=== PATIENT | female | born 1950 | race Caucasian/White ===

== ENCOUNTER → 2021-01-10 10:00 | Outpatient (CLI) | payer MEDICARE, OTHER, SELFPAY ==
[2020-12-29 14:03] VITALS: BMI 41.5
--- NOTE | 2021-01-10 10:28 | RAD_ITS ---
STUDY: X-RAY CHEST REASON FOR EXAM: Female, 70 years old. Atrial fibrillation TECHNIQUE: PA and lateral views of the chest. COMPARISON: Comparison is made with prior study dated 12/09/2016. FINDINGS: Mild increased linear markings at the left lung base suggestive of a mild basilar scarring. There is no demonstrated pleural abnormality. Normal size heart. Normal mediastinum and anjel. Normal visualized pulmonary arteries. There is atherosclerotic calcification of the aortic arch with tortuosity. There are diffuse degenerative changes of the visualized thoracic spine. There is degenerative osteoarthritis of the bilateral shoulders. Surgical clips are seen in the epigastric region. RAD/Chest PA and Lateral IMPRESSION: Mild degree of increased signal markings at the left lung base suggestive of linear scarring. Electronically Signed: Brice Rizo MD at 10:38 EDT , Service support ,
[2021-01-10 11:36] LABS: Absolute Lymphocyte Count 1.78 X10^3/uL (0.83-4.51); Absolute Neutrophil Count 3.2 X10^3/uL (2.0-7.7); Basophil# 0.03 X10^3/uL; Basophil% 0.6 % (0-1); Eosinophil# 0.06 X10^3/uL; Eosinophils% 1.1 % (0-5); Hematocrit 50.6 % (37-47); Lymphocyte # 1.78 X10^3/ul (4.0); Lymphocyte % 33.1 % (19-41); Mean Corp Hgb Conc 31.6 g/dL (32-36); Mean Corpuscular Hgb 29.1 pg (27.0-32.0); Mean Corpuscular Volume 92.2 fL (81-99); Mean Platelet Vol. 12.2 fl (6.2-12.0); Monocyte# 0.34 X10^3/uL; Monocyte% 6.3 % (0-10); NRBC Flagged by Analyzer 0 % (0-5); Neutrophil # 3.16 X10^3/uL (2.7-7.7); Neutrophil % 58.7 % (47-70); Platelet Count 224 K/mm3 (150-450); RBC Distribution Width CV 14.2 % (11.6-14.6); RBC Distribution Width SD 47.9 fl (35.1-43.9); Red Blood Count 5.49 M/mm3 (4.2-5.4); White Blood Count 5.4 K/mm3 (4.4-11.0)
[2021-01-10 12:14] LABS: ALB/GLOB Ratio 1.1 RATIO (0.9-2.4); AST(SGOT) 13 U/L (15-37); Alanine Aminotransfer ALT/SGPT 24 U/L (13-56); Albumin, Serum 3.9 g/dL (3.2-5.0); Alkaline Phosphatase 83 U/L (45-117); Anion Gap 5 (5-15); BUN 10 mg/dL (7-18); BUN/Creat Ratio 18.2 RATIO (10-20); Calcium,Total 9.3 mg/dL (8.5-10.1); Chloride 105 mmol/L (98-107); Cholesterol 118 mg/dL (200); Creatinine, Serum 0.55 mg/dL (0.55-1.02); EST Glomerular Filtration Rate 116 mL/min (>60); Est Glom Filt Rate - Afr Amer 140 mL/min (>60); Globulin 3.6 g/dL (2.2-4.2); Glucose 140 mg/dL (74-106); High Density Lipoprotein 29 mg/dL; Magnesium 2.1 mg/dL (1.6-2.6); Potassium 4.6 mmol/L (3.5-5.1); Protein, Total 7.5 g/dL (6.4-8.2); Sodium Level 140 mmol/L (136-145); T4 Total, Thyroxin 11.4 ug/dL (4.8-13.9); Triglycerides 116 mg/dL; Very Low Density Lipoprotein 23 mg/dL (5-40)
[2021-01-10 13:43] LABS: Theophylline (Aminophylline) < 2.0 ug/mL (10.0-20.0)
== END ==
PROVIDERS: Referring Provider Internal Medicine Cardiovascular Disease; Visit Provider Internal Medicine Cardiovascular Disease
DX: I48.91 Unspecified atrial fibrillation (principal); E03.9 Hypothyroidism, unspecified; I10 Essential (primary) hypertension; E78.00 Pure hypercholesterolemia, unspecified
CPT/HCPCS: 36415; 71046; 80053; 80061; 80198; 83735; 84436; 85025

== ENCOUNTER → 2021-01-17 07:09 | Outpatient (CLI) | payer MEDICARE, OTHER, SELFPAY ==
[2020-12-29 14:03] VITALS: BMI 41.5
--- NOTE | 2021-01-17 07:10 | ECHOCS_ITS ---
Reason For Study: Afib/Flutter Procedure This was a 2D Doppler, Color Flow transthoracic echocardiogram. The study was technically difficult. Contrast injection was performed. Exam performed in department. Left Ventricle Normal LV size. Moderate concentric left ventricular hypertrophy. Left ventricular systolic function is normal. The estimated ejection fraction is 60 %. Unable to assess diastolic dysfunction. No regional wall motion abnormalities noted. Right Ventricle Normal RV size. Normal systolic function. Atria The left atrium is moderately enlarged. The right atrium is moderately enlarged. No doppler evidence for ASD. Mitral Valve There is mild mitral annular calcification. Extension of the mitral annular calcification onto the base of the posterior mitral valve leaflet. Trivial mitral valve insufficiency. Tricuspid Valve Normal tricuspid valve. Trivial tricuspid valve insufficiency. Unable to estimate RV systolic pressure/pulmonary artery pressure due to technically difficult study. Aortic Valve The aortic valve is not well visualized. Pulmonic Valve The pulmonic valve is not well visualized. Trivial pulmonic valve insufficiency. Great Vessels The aortic root is not well visualized. Pericardium/Pleural Trivial pericardial effusion. There are no echocardiographic indications of cardiac tamponade. Medication 22 gauge I.V. with prn adaptor inserted into right arm. Diluted definity 2ml given slow IV push to enhance endocardial definition. MMode/2D Measurements & Calculations LVIDd: 4.4 cm IVSd: 1.5 cm LA dimension: 4.4 cm LVIDs: 3.1 cm LVPWd: 1.3 cm FS: 29.6 % LAV(MOD-bp): 83.6 ml LA A4 area: 25.1 cm2 RA A4 area: 25.0 cm2 LAV(MOD-bp) Indexed: 40.4 ml/m2 LAV(MOD-sp2): 74.4 ml LAV(MOD-sp4): 84.8 ml Doppler Measurements & Calculations MV E max geo: 109.4 cm/sec Ao V2 max: 99.5 cm/sec LV V1 max: 75.7 cm/sec Ao max P.0 mmHg LV V1 max P.3 mmHg PA V2 max: 60.7 cm/sec ECHO/Echo Complete W/ Contrast Interpretation Summary The study was technically difficult. Contrast injection was performed. Left ventricular systolic function is normal. The estimated ejection fraction is 60 %. Moderate concentric left ventricular hypertrophy. The left atrium is moderately enlarged. The right atrium is moderately enlarged. There is mild mitral annular calcification. Extension of the mitral annular calcification onto the base of the posterior mi tral valve leaflet. Trivial mitral valve insufficiency. Trivial tricuspid valve insufficiency. Trivial pulmonic valve insufficiency. Trivial pericardial effusion. There are no echocardiographic indications of cardiac tamponade. Unable to estimate RV systolic pressure/pulmonary artery pressure due to techni mauro difficult study. Unable to assess diastolic dysfunction. Ordering Physician: Alex Nayak Referring Physician: More Cochran Performed By: Waylon Payton RCS
--- NOTE | 2021-01-17 09:18 | STRESSREP ---
Stress Test Report Date: 01-17-2021 Procedure: Pharmacologic stress nuclear imaging study Indications: Atrial fibrillation Consent: Per the patient Procedure: The patient underwent pharmacologic (Regadenoson 0.4mg ) evaluation with a peak heart rate of 120 beats per minute (80%predicted maximal heart rate) and a peak blood pressure of 162/92 mmHg. The baseline ECG demonstrated atrial fibrillation; nonspecific ST/T wave abnormality. The peak pharmacologic ECG demonstrated no obvious ECG changes. There were no cardiac dysrhythmias pretest, during pharmacologic infusion, or recovery. There was no complaint of chest discomfort during pharmacologic infusion or recovery. The examination was discontinued secondary to completion of protocol. Impression: 1. Pharmacologic (Regadenoson) evaluation 2. Peak pharmacologic ECG with continued atrial fibrillation with nonspecific ST/T wave abnormality. 3. There were no cardiac dysrhythmias pretest, during pharmacologic infusion, or recovery. 4. Nuclear images pending Myocardial perfusion imaging study: Technique: The patient was injected with 14.7 millicuries of technetium 99m Cardiolite and subsequently rest SPECT Cardiolite nuclear imaging was obtained in the horizontal long, vertical long, and short axis views. The patient underwent pharmacologic (Regadenoson) evaluation with a peak heart rate of 120 beats per minute (80% percent predicted maximal heart rate) and a peak blood pressure of 162/92 mmHg. The patient was injected with 45.0 millicuries of technetium 99m Cardiolite and subsequently stress SPECT Cardiolite nuclear imaging was obtained in the horizontal long, vertical long, and short axis views. A gated Cardiolite study at peak stress was obtained. Interpretation: Rest and stress SPECT Cardiolite nuclear imaging status post realignment, normalization, and attenuation correction demonstrate relative uniform tracer uptake and myocardial perfusion appearing within normal limits. There is end systolic thickening and brightening. The gated Cardiolite study demonstrates myocardial thickening and inward wall motion. The reported LVEF is 62%. Impression: 1. Rest and stress SPECT Cardiolite nuclear imaging demonstrate relative uniform tracer uptake and myocardial perfusion appearing within normal limits. 2. The gated Cardiolite study reports an LVEF of 62%. This note was generated with [employer]ation software. It may contain incorrect words, spelling, and punctuation that were not noted in checking the note before signing.
== END ==
PROVIDERS: Referring Provider Internal Medicine Cardiovascular Disease; Visit Provider Internal Medicine Cardiovascular Disease
DX: I48.91 Unspecified atrial fibrillation (principal); I10 Essential (primary) hypertension; E03.9 Hypothyroidism, unspecified; R06.02 Shortness of breath
CPT/HCPCS: 78452; 93017; 93306; A9500; Q9957; A4216; C8929; J2785

== ENCOUNTER 2021-02-07 10:22 | Day surgery (SDC) | payer MEDICARE, OTHER, SELFPAY ==
[2020-12-29 14:03] VITALS: BMI 41.5
[2021-02-06 07:00] VITALS: BMI 41.4
--- NOTE | 2021-02-07 07:13 | HP_ITS ---
[facility] History of Present Illness Details: This is a 70-year-old white female who presents today for outpatient cardiovascular consultation based upon concerns of atrial fibrillation. She has previously been evaluated by [facility] with her last outpatient visit appearing to be on 08-10-2014, thus, has been greater than 3 years since she has had a cardiovascular evaluation with this organization. At that time she was being evaluated for concerns of chest discomfort as well as near syncope superimposed upon hypertension, diabetes mellitus, obstructive sleep apnea, and obesity. She has undergone noninvasive evaluation the past. This included a transthoracic echocardiogram and a dobutamine stress echocardiogram. The results were reviewed with her. They are noted below. She did not require diagnostic cardiac catheterization. It is noted that she had been previously evaluated in 1995 in the [facility] from a cardiovascular perspective with a transthoracic echocardiogram which at that time demonstrated her LVEF to be 71% and a dobutamine stress echocardiogram which was reported as negative. She did not require any diagnostic cardiac catheterization. Further back in 2006 she had a cardiovascular evaluation with an echocardiogram. At that time her LVEF was 60%. At that time she had a dobutamine stress echocardiogram which was reported as negative. Again she did not require diagnostic cardiac catheterization. At the present time she is not complaining of any chest discomfort. She does have an element of shortness of breath and dyspnea with activity. She is denied orthopnea or PND or peripheral pitting edema. There has been no near syncope or syncope. She states she has not noted any obvious change in her heart rate or rhythm. She does not recall going through any evaluation for it until today. Today at her primary care physician's office she had an ECG. She was noted to be in atrial fibrillation with a low voltage QRS in the limb leads and with an ST/T wave abnormality potentially compatible with myocardial ischemia in the anterolateral distribution. Thus she was referred for further cardiac evaluation. 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 Accompanied by: Self Allergies Cephalosporins Allergy (Unknown, Verified 12/29/20 14:04) unknown tetracycline Allergy (Unknown, Verified 12/29/20 14:04) unknown Medications ALPRAZolam [Xanax] 0.5 mg PO TID PRN PRN 12/09/16 [History Confirmed 12/29/20] Carvedilol [Coreg (Beta Jodi)] 12.5 mg PO BID 12/09/16 [History Confirmed 12/29/20] Celecoxib 200 mg PO DAILY 12/09/16 [History Confirmed 12/29/20] Escitalopram Oxalate [Lexapro] 10 mg PO DAILY 12/09/16 [History Confirmed 12/29/20] Levothyroxine Sodium 150 mcg PO DAILY 12/09/16 [History Confirmed 12/29/20] metFORMIN HCl [Glucophage] 500 mg PO BIDCM 12/09/16 [History Confirmed 12/29/20] Acetaminophen [Tylenol Tablet] 650 mg PO Q6H PRN PRN #0 tab 12/11/16 [Rx] Albuterol Inhaler [Ventolin Hfa] 1 - 2 puff INHALATION Q4H PRN PRN #1 inhaler 12/11/16 [Rx Confirmed 12/29/20] apixaban 5 mg tablet 5 mg PO BID #60 tab 12/29/20 [Rx Confirmed 12/29/20] aspirin 81 mg tablet,delayed release 81 mg PO DAILY #1 tab 12/29/20 [Rx Confirmed 12/29/20] buspirone 5 mg tablet 5 mg PO BID 12/29/20 [History Confirmed 12/29/20] cyanocobalamin (vitamin B-12) 100 mcg tablet 100 mcg PO DAILY 12/29/20 [History Confirmed 12/29/20] cyclobenzaprine 10 mg tablet 10 mg PO DAILY PRN tab 12/29/20 [History Confirmed 12/29/20] losartan 25 mg tablet 25 mg PO DAILY 12/29/20 [History Confirmed 12/29/20] [facility] Medical History Hypothyroidism (Chronic) New onset atrial fibrillation (Acute) Essential hypertension (Chronic) Hyponatremia (Acute) COPD with acute exacerbation (Acute) DM2 (diabetes mellitus, type 2) (Chronic) Osteoarthritis (Chronic) Acute respiratory failure (Acute) Hypokalemia (Acute) Anxiety (Chronic) Colon cancer (Chronic) Depression (Chronic) Surgical History History of adenoidectomy (Resolved) History of appendectomy (Resolved) History of cholecystectomy (Resolved) History of eye surgery (Resolved) History of gastric bypass (Resolved) History of hemicolectomy (Resolved) History of subtotal thyroidectomy (Resolved) Family History Father Diabetes Heart disease Cancer Hypertension Mother Heart disease Cancer colon Sister Cancer Social History (Updated 12/29/20 @ 15:[address] Alex Nayak MD) Smoking Status: Current every day smoker alcohol intake: never substance use type: does not use caffeine: Yes Type: carbonated beverages Number of servings: 8 ROS Const Const: Negative for fatigue, weakness, frequent falls, excessive sweating, weight gain or weight loss Eyes Eyes: Negative for transient loss of vision, blurry vision or change in vision ENT ENT: Positive for balance problems (assistive device with ambulation); negative for dizziness Cardio Chest Pain: No Palpitations: Yes (occasional) feels like its: skipping Edema: None Muscle aches with walking: None Resp Respiratory: Positive for SOB with activity (baseline); negative for SOB at rest GI GI: Negative vomiting or vomiting blood/hematemesis : Negative for hematuria Musc Musc: Positive for balance problems (assistive device with ambulation); negative for muscle aches/ myalgia, muscle weakness or joint pain Skin Skin: Negative non-healing lesions or rash Neuro Neuro: Negative for dizziness, lightheadedness, orthostatic symptoms, frequent falls, weakness or blurry vision Markus Hematologic/Lymphatic: Negative for easy bleeding Endo Endo: Negative for fatigue or excessive sweating Psych Psych: Negative for anxiety or depression Allergy Allergy/Immunology: Negative for hives, Negative for rash Cardiology Exam Const Appearance: cooperative, healthy appearing, comfortable, no acute distress, well developed and well groomed Nutritional Appearance: obese Orientation: alert, awake and oriented x3 Head Head: normal to inspection, normocephalic and atraumatic Ears: hearing grossly normal bilaterally Nose: external nose normal Face and Sinus: face symmetric Eyes Eyelids: eyelids normal Conjunctivae: conjunctivae normal Pupils: PERRL EOM: EOM intact bilaterally Neck Neck: normal visual inspection and full ROM Carotids: normal carotid upstroke Chest Chest inspection: normal inspection of the chest, symmetric chest movement and normal respiratory effort Auscultation: Bilateral: Clear to Auscultation Cardio Palpation: normal PMI Rhythm: irregular rhythm Heart sounds: S1 normal and S2 normal GI GI: normal to inspection, soft, absent bowel sounds and obese Neuro General: alert, awake, oriented x3 and moves all extremities Skin Skin: no rashes or lesions noted Extremities Pulses: Normal: Right Radial Pulse, Left Radial Pulse Lower Extremity Edema: None: Bilateral Psych Psychological: normal affect Assessment & Plan 1. New onset atrial fibrillation I48.91 Plan At the present time the etiology and duration of her atrial fibrillation is unclear. This may be related to a combination of her age, her hypertension, her underlying pulmonary disease process, etc. Also the duration of her atrial fibrillation is unknown. She does not recall call having any obvious symptoms and does not recall any obvious objective findings that would have documented a previous date where her atrial rhythm may occurred. At the moment she will continue medical therapy. Her rate appears to be controlled with her beta-jodi therapy. She will be placed on anticoagulant therapy with apixaban 5 mg p.o. twice daily. She will have further diagnostic studies including laboratory studies, a chest x-ray, and echocardiogram to evaluate her atrial size and her left ventricular wall motion and systolic function as well as a pharmacologic stress nuclear imaging study based upon her atrial dysrhythmia and her abnormal ECG changes potentially compatible with myocardial ischemia in the anterolateral distribution. Depending upon her cardiovascular evaluation she may or may not need further invasive evaluation. Over time, as she is anticoagulated, consideration can be given to an attempt at regaining sinus rhythm with a synchronized biphasic DC cardioversion procedure. Orders Orders: Comprehensive Metabolic Profil 1 Day Magnesium Today T4 Total, Thyroxin Today CBC W/Diff, Automated Today Theophylline (Aminophylline) Today Lipid Profile 1 Day Liver Profile 1 Day Echo Complete Today Nuclear Stress Test - Chemical Today Chest PA and Lateral Today 2. Essential hypertension I10 Plan She states her blood pressure was under control at her PCPs office. Based upon the PCP recording it was 122/84. She states it is now gone up based upon the information she has received and having to present to the cardiology office. At the moment she will continue her medical therapy and follow-up. Orders Orders: Comprehensive Metabolic Profil 1 Day Magnesium Today T4 Total, Thyroxin Today CBC W/Diff, Automated Today Theophylline (Aminophylline) Today Lipid Profile 1 Day Liver Profile 1 Day Echo Complete Today Nuclear Stress Test - Chemical Today Chest PA and Lateral Today 3. Hypothyroidism, unspecified type E03.9 Plan Her thyroid function will be checked as this could be a contributing factor to her atrial dysrhythmia. Orders Orders: Comprehensive Metabolic Profil 1 Day Magnesium Today T4 Total, Thyroxin Today CBC W/Diff, Automated Today Theophylline (Aminophylline) Today Lipid Profile 1 Day Liver Profile 1 Day Echo Complete Today Nuclear Stress Test - Chemical Today Chest PA and Lateral Today 4. Dyspnea, unspecified type R06.00 Plan She does have an element of shortness of breath/dyspnea. This could be related to her underlying pulmonary disease process with her COPD. However it also could be related to an underlying cardiovascular process with her atrial dysrhythmia and/or any concerns of CAD or myocardial ischemia. Thus she will undergo further evaluation care as noted. Plan Detail Other Orders Orders: Lipid Profile 1 Day E78.00 Liver Profile 1 Day E78.00 Other Medications New: aspirin 81 mg PO DAILY 1 tab 0RF apixaban 5 mg PO BID 60 tabs 6RF Additional Comments The above was discussed with her and she was agreeable to this approach. Follow Up 3 Months (PFM) Coding Level of Care Code Off vis,new,level 5 Diagnoses New onset atrial fibrillation I48.91 Essential hypertension I10 Hypothyroidism, unspecified type E03.9 ??Hypothyroidism type: unspecified Dyspnea, unspecified type R06.00 ??Dyspnea type: unspecified Coding Level of Care Code Off vis,new,level 5 Diagnoses New onset atrial fibrillation I48.91 Essential hypertension I10 Hypothyroidism, unspecified type E03.9 ??Hypothyroidism type: unspecified Dyspnea, unspecified type R06.00 ??Dyspnea type: unspecified Supplemental Info Supplemental Information Echocardiogram: 07-06-2014 Interpretation Summary The study was technically difficult. Left ventricular systolic function is normal. The estimated ejection fraction is 60 %. The left atrium is mildly enlarged. Trivial mitral valve insufficiency. Trivial tricuspid valve insufficiency. Mild focal aortic valve thickening. Right ventricular systolic pressure estimated to be 42 mmHg. Dobutamine stress echocardiogram: 07-06-2014 Stress Results Protocol: Dobutamine Stress Echo Maximum Predicted HR: 156 bpm Target HR: 133 bpm % Maximum Predicted HR: 90 % Stage DurationHeart Rate BP Dose Comment (mm:ss) (bpm) Baseline 60 152/84 DSE 10 MCG 3:00 73 171/7910.00 DSE 20 MCG 3:00 90 187/7220.00 DSE 30 MCG 6:00 141 160/9030.000.25 MG ATROPINE AT 10 MIN, 0.25 MG ATROPINE AT 11:20 MIN RECOVERY 83 122/66 Stress Duration: 12:00 mm:ss Maximum Stress HR: 141 bpm Baseline Echocardiogram Findings Stress Echo Wall motion Data Resting WM Intermediate WM Stress WM Resting Wall Motion Wall Motion Int. Wall Motion Stress All segments Normal. All segments Hyperkinetic. All segments Hyperkinetic. Ejection Fraction 60 %. Ejection Fraction 70 %. Ejection Fraction 80 %. Stress Results Arrhythmias: Occasional PAC / PVC during pharmacologic infusion. EKG Data Baseline-NSR. No obvious ECG changes. Symptoms with Stress No c/o chest discomfort during pharmacologic infusion / recovery. Interpretation Summary Negative (Adequate) Dobutamine Stress Echocardiogram Diagnostics Electrocardiogram 12/09/16 Echocardiogram 06/29/14 Stress Echocardiogram 07/06/14 Chest X-Ray 12/09/16 I have examined the patient the following changes are noted: The patient underwent transthoracic echocardiogram on 01-18-2021. The results are as noted below. Interpretation Summary The study was technically difficult. Contrast injection was performed. Left ventricular systolic function is normal. The estimated ejection fraction is 60 %. Moderate concentric left ventricular hypertrophy. The left atrium is moderately enlarged. The right atrium is moderately enlarged. There is mild mitral annular calcification. Extension of the mitral annular calcification onto the base of the posterior mitral valve leaflet. Trivial mitral valve insufficiency. Trivial tricuspid valve insufficiency. Trivial pulmonic valve insufficiency. Trivial pericardial effusion. There are no echocardiographic indications of cardiac tamponade. Unable to estimate RV systolic pressure/pulmonary artery pressure due to technically difficult study. Unable to assess diastolic dysfunction. The patient underwent a stress test on 01-17-2021. The results are as noted below. Stress Test Report Date: 01-17-2021 Procedure: Pharmacologic stress nuclear imaging study Indications: Atrial fibrillation Consent: Per the patient Procedure: The patient underwent pharmacologic (Regadenoson 0.4mg ) evaluation with a peak heart rate of 120 beats per minute (80%predicted maximal heart rate) and a peak blood pressure of 162/92 mmHg. The baseline ECG demonstrated atrial fibrillation; nonspecific ST/T wave abnormality. The peak pharmacologic ECG demonstrated no obvious ECG changes. There were no cardiac dysrhythmias pretest, during pharmacologic infusion, or recovery. There was no complaint of chest discomfort during pharmacologic infusion or recovery. The examination was discontinued secondary to completion of protocol. Impression: 1. Pharmacologic (Regadenoson) evaluation 2. Peak pharmacologic ECG with continued atrial fibrillation with nonspecific ST/T wave abnormality. 3. There were no cardiac dysrhythmias pretest, during pharmacologic infusion, or recovery. 4. Nuclear images pending Myocardial perfusion imaging study: Technique: The patient was injected with 14.7 millicuries of technetium 99m Cardiolite and subsequently rest SPECT Cardiolite nuclear imaging was obtained in the horizontal long, vertical long, and short axis views. The patient underwent pharmacologic (Regadenoson) evaluation with a peak heart rate of 120 beats per minute (80% percent predicted maximal heart rate) and a peak blood pressure of 162/92 mmHg. The patient was injected with 45.0 millicuries of technetium 99m Cardiolite and subsequently stress SPECT Cardiolite nuclear imaging was obtained in the horizontal long, vertical long, and short axis views. A gated Cardiolite study at peak stress was obtained. Interpretation: Rest and stress SPECT Cardiolite nuclear imaging status post realignment, normalization, and attenuation correction demonstrate relative uniform tracer uptake and myocardial perfusion appearing within normal limits. There is end systolic thickening and brightening. The gated Cardiolite study demonstrates myocardial thickening and inward wall motion. The reported LVEF is 62%. Impression: 1. Rest and stress SPECT Cardiolite nuclear imaging demonstrate relative uniform tracer uptake and myocardial perfusion appearing within normal limits. 2. The gated Cardiolite study reports an LVEF of 62%. The patient has been referred for further evaluation with synchronized biphasic DC cardioversion. The procedure and risk were discussed with her. She was agreeable to this approach. The surgeon/proceduralist and patient have discussed in detail the risk of exposure to and/or potential harm posed by the COVID-19 virus with having a surgery/procedure at this time versus the risk of delaying the surgery/procedure. It is not possible to know either the risk of delaying the surgery or procedure or chance of getting an infection with perfect accuracy, but a joint decision was made between the patient and the surgeon/proceduralist to proceed at this time with the scheduled surgery/procedure as indicated on the consent form.
--- NOTE | 2021-02-07 12:21 | PRO.PCM_ITS ---
Procedure Report Date of Procedure: 02/07/21 CONSCIOUS SEDATION REPORT DATE OF SERVICE: February 07, 2021 BRIEF HISTORY OF PRESENT ILLNESS: The patient is a 70-year-old female who presented to [facility] for an elective outpatient cardioversion due to underlying atrial fibrillation. The patient is currently anticoagulated on Eliquis. Her last surface echocardiogram revealed an ejection fraction of approximately 60%. She has never previously undergone a cardioversion. She denies any prior anesthetic complications. The patient does have a history of self-reported COPD and obstructive sleep apnea, but is not currently compliant with the use of nocturnal Pap therapy. PHYSICAL EXAMINATION: VITAL SIGNS: Reviewed and were acceptable. GENERAL: The patient is an obese female, in no apparent distress, speaking in full sentences. HEENT: Normocephalic, atraumatic. Mucous membranes are moist and pink. Good mouth opening noted. Trachea is midline. CHEST: S1, S2 irregularly irregular. No murmurs, rubs or gallops were noted. LUNGS: Clear to auscultation bilaterally without appreciable wheezes, rales or rhonchi. ABDOMEN: Soft, nontender, nondistended. Positive bowel sounds. EXTREMITIES: There is no clubbing, cyanosis or edema. ASA Class: II DESCRIPTION OF PROCEDURE: After confirmation of informed consent, the patient's anesthesia plan was reviewed in detail. Propofol was chosen. Risks and benefits were reviewed and the patient agreed to proceed. At 1207, the patient was given her first bolus of propofol. In total, the patient required 70 mg of propofol throughout the entire procedure to facilitate 3 separate attempts at cardioversion, the first at 200 J, second at 300 J and third at 360 J. The latter was successful in achieving normal sinus rhythm. The patient was monitored until 1217, at which time she reached her baseline mental status and function. The patient tolerated the procedure well. COMPLICATIONS: None ESTIMATED BLOOD LOSS: None RECOMMENDATIONS: Okay to recover in usual fashion. [id number]: Other Procedure See Report - [id number]
--- NOTE | 2021-02-07 12:29 | CARDIOVERS_ITS ---
Cardioversion Cardioversion: Date: 02-07-2021 Procedure: Synchronized Biphasic DC Cardioversion Indications: Atrial fibrillation Consent: Per the Patient Anesthesia: per Dr. Flores of pulmonology and critical care medicine with propofol 70 mg IV push total Procedure: Synchronized Biphasic DC Cardioversion: 200 J x 1: Result: Atrial fibrillation Synchronized biphasic DC cardioversion: 300 J x 1: Result: Atrial fibrillation Synchronized biphasic DC cardioversion: 360 J x 1: Result: Sinus rhythm; PACs Complications: no apparent complications This note was generated with [employer] software. It may contain incorrect words, spelling, and punctuation that were not noted in checking the note before signing.
== END 2021-02-07 13:20 | disposition home or self-care (01) ==
PROVIDERS: Referring Provider Internal Medicine Cardiovascular Disease; Visit Provider Internal Medicine Cardiovascular Disease
DX: I48.91 Unspecified atrial fibrillation (principal); I10 Essential (primary) hypertension; E11.9 Type 2 diabetes mellitus without complications; E03.9 Hypothyroidism, unspecified; J44.9 Chronic obstructive pulmonary disease, unspecified; F41.9 Anxiety disorder, unspecified; F32.9 Major depressive disorder, single episode, unspecified; G47.33 Obstructive sleep apnea (adult) (pediatric); E66.9 Obesity, unspecified; F17.210 Nicotine dependence, cigarettes, uncomplicated; Z79.84 Long term (current) use of oral hypoglycemic drugs; Z68.41 Body mass index [BMI] 40.0-44.9, adult; Z79.82 Long term (current) use of aspirin; Z79.1 Long term (current) use of non-steroidal anti-inflammatories (NSAID); Z79.01 Long term (current) use of anticoagulants; Z79.899 Other long term (current) drug therapy
CPT/HCPCS: 92960; 93005